=== PATIENT | female | born 1980 | race Caucasian/White ===

== ENCOUNTER 2025-05-13 07:57 | Emergency (ER) | payer OTHER, SELFPAY ==
[2025-05-13] MEDS ORDERED: HYDROcodone/Acetaminophen 10/325 mg Tablet ONE (08:33)
== END 2025-05-13 09:43 | disposition home or self-care (01) ==
LOC: NAV ERS 07:57
DX: S83.91XA Sprain of unspecified site of right knee, initial encounter (principal); I10 Essential (primary) hypertension; V89.2XXA Person injured in unspecified motor-vehicle accident, traffic, initial encounter; Z86.73 Personal history of transient ischemic attack (TIA), and cerebral infarction without residual deficits
CPT/HCPCS: 36415; 85379; 99283

== ENCOUNTER 2025-06-15 01:36 | Emergency (ER) | payer OTHER, SELFPAY | END 2025-06-15 03:10 | disposition home or self-care (01) | LOC: NAV ERS 01:36 | DX: M25.561 Pain in right knee (principal); I10 Essential (primary) hypertension; G45.9 Transient cerebral ischemic attack, unspecified; X50.0XXA Overexertion from strenuous movement or load, initial encounter | CPT/HCPCS: 99283 ==